=== PATIENT | male | born 1995 | race Caucasian/White ===

== ENCOUNTER → 2016-12-11 | Outpatient (CLI) | payer OTHER | LOC: BMCIMAGING 10:58 | PROVIDERS: ATTEND Family Medicine | DX: R07.81 Pleurodynia (principal) ==

== ENCOUNTER 2016-12-13 11:15 | Emergency (ER) | payer OTHER ==
[2016-12-13 11:25] VITALS: TEMP 98.2
[2016-12-13 11:47] LABS: % IMMATURE GRANULYOCYTES 0.2 % (0.0-1.1); ABSOLUTE IMMATURE GRANULOCYTES 0.01 10^3/uL (0.00-0.10); ADD DIFF? NO; ADD MORPH? NO; ADD SCAN? NO; ATYPICAL LYMPHOCYTE FLAG 30 (0-99); FRAGMENT RBC FLAG 0 (0-99); HEMOGLOBIN 17.1 g/dL (13.7-17.5); LEFT SHIFT FLG 0 (0-99); LIPEMIA HEMOLYSIS FLAG 90 (0-99); MEAN CELL HEMOGLOBIN 28.5 pg (27.9-34.1); MEAN CELL HEMOGLOBIN CONCENTR. 34.2 g/dL (32.4-36.7); MEAN CELL VOLUME 83.2 fL (81.5-99.8); MEAN PLATELET VOLUME 10.2 fL (8.7-11.7); PLATELET CLUMPS FLAG 10 (0-99); PLATELET COUNT 234 10^3/uL (150-400); RED BLOOD CELL COUNT 6.01 10^6/uL (4.40-6.38); RED CELL DISTRIBUTION WIDTH 12.9 % (11.5-15.2)
[2016-12-13 12:03] LABS: ANION GAP 13 mEq/L (8-16); CALCIUM 10.3 mg/dL (8.5-10.4); CARBON DIOXIDE 24 mEq/l (22-31); CHLORIDE 105 mEq/L (97-110); CREATININE 0.8 mg/dL (0.7-1.3); GLOMERULAR FILTRATION RATE > 60; GLUCOSE 84 mg/dL (70-100); POTASSIUM 4.6 mEq/L (3.5-5.2); SODIUM 142 mEq/L (134-144)
--- NOTE | 2016-12-13 12:49 | EDPHY ---
H & P Time Seen by Provider: 12/13/16 11:45 HPI/ROS: CHIEF COMPLAINT: Abdominal pain, rectal bleeding HISTORY OF PRESENT ILLNESS: 21-year-old male presents to the emergency department with rectal bleeding that has been intermittent for nearly 1 month although was more brisk earlier today. He has had some generalized abdominal pain. No vomiting or diarrhea. No chest pain or difficulty breathing. No fevers or chills. The patient does not feel lightheaded. He states he has a known history of hemorrhoids. He has never sought medical treatment for this. REVIEW OF SYSTEMS: Constitutional: No fever, no chills. Eyes: No double or blurry vision. ENT: No sore throat. Respiratory: No cough, no shortness of breath. Cardiac: No chest pain. Gastrointestinal: Abdominal pain as above. No vomiting or diarrhea Genitourinary: No dysuria. Musculoskeletal: No neck or back pain. Skin: No rashes. Neurological: No headache. Past Medical/Surgical History: Attention deficit hyperactivity disorder, depression, anxiety, autism Social History: Single Smoking Status: Never smoked Physical Exam: General Appearance: Alert, no distress. Afebrile. Vital signs are stable. Eyes: Pupils equal and round. Extraocular motions are all intact. ENT: Mouth: Mucous membranes moist. Respiratory: No wheezing, rhonchi, or rales, lungs are clear to auscultation. Cardiovascular: Regular rate and rhythm. Gastrointestinal: Abdomen is soft and nontender, no masses, no rebound or guarding, bowel sounds normal. Rectal exam: Performed with nurseJuanita, at bedside. There is no stool and no blood noted on gloved finger. The patient had 2 small hemorrhoids externally that were not thrombosed nor where the bleeding. Neurological: Alert and oriented x 3, cranial nerves II through XII grossly intact Skin: Warm and dry, no rashes. Musculoskeletal: Nontender to palpate along the cervical, thoracic or lumbar spine. Neck is supple. Extremities: Full range of motion and no peripheral edema. Psychiatric: Patient is oriented X 3, there is no agitation. Constitutional: Initial Vital Signs Temperature (C) 36.8 C 12/13/16 11:23 Heart Rate 62 12/13/16 11:23 Respiratory Rate 16 12/13/16 11:23 Blood Pressure 144/89 H 12/13/16 11:23 O2 Sat (%) 98 12/13/16 11:23 O2 Delivery Mode Room Air Allergies/Adverse Reactions: No Known Allergies Allergy (Verified 12/13/16 11:22) Home Medications: Medication Instructions Recorded NK [No Known Home Meds] 12/13/16 Medical Decision Making ED Course/Re-evaluation: 21-year-old male presents to the emergency department with abdominal pain or rectal bleeding. Patient had normal laboratory studies including normal CBC and chemistries. On rectal examination he did not have any stool or blood on gloved finger. I spoke with Dr. Marisel Campos who was on-call for Gastroenterology, who will see this patient in follow-up. I do not think any imaging studies are indicated. The patient has no pain with palpation to the abdomen. Differential Diagnosis: Including but not limited to hemorrhoids, inflammatory bowel disease, anemia, polyp, colitis, acute appendicitis, obstruction - Data Points Laboratory Results: Laboratory Results 12/13/16 11:35 12/13/16 11:35 Departure - Departure Disposition: Home, Routine, Self-Care Clinical Impression: Rectal bleeding Condition: Good Instructions: Rectal Bleeding (ED) Additional Instructions: Follow up with GI as discussed. Return to the emergency department if you developed recurring a brisk bright red, if you feel lightheaded or dizzy, or if you feel worse in any way. Referrals: Marisel Campos MD [Medical Doctor] - 2-3 days, call for appt. ( Business Continuity Coordinator on-call) Stand Alone Forms: School Excuse
[2016-12-13 12:57] VITALS: BP 136/74; PULSE 68; RESP 18; O2SAT 94
== END 2016-12-13 12:56 | disposition home or self-care (01) ==
DX: K62.5 Hemorrhage of anus and rectum (principal)

== ENCOUNTER 2016-12-31 19:16 | Emergency (ER) | payer OTHER ==
[2016-12-31 19:25] VITALS: BP 134/96; PULSE 96; RESP 16; TEMP 99.3; O2SAT 96
--- NOTE | 2016-12-31 19:51 | EDPHY ---
H & P Stated Complaint: Self inflicted [place] to the right thigh concern they are infected HPI/ROS: CHIEF COMPLAINT: Superficial lacerations HISTORY OF PRESENT ILLNESS: The patient is a 21-year-old male with history of major depressive disorder, who presents to the Emergency Department today for evaluation of self-inflicted wounds The patient cut both of his thighs multiple times yesterday with a camping knife. He has a history of cutting, but has not done so in quite sometime. When asked if he is suicidal, the patient states "I' m afraid to so that stops me." The patient actively sees a therapist. He has contracted that he will see his therapist if he is feeling suicidal. The patient tells me he has had for psychiatric hospitalizations in the past The patient does not take medications for depression because he does not agree with the way it makes him feel. He does not express suicidality or homicidality at this time. The patient notes sore throat and cough. He has been taking Ibuprofen and not finding much relief. He denies fever, nausea, vomiting, or diarrhea. He is not short of breath. REVIEW OF SYSTEMS: A ten point review of systems was performed and is negative with the exception of the items mentioned in the HPI. Past medical history: Major depression, Anxiety Past surgical history: Appendectomy, Orthopedic surgeries, [place] teeth removed. Family history: Noncontributory. Social history: Student at [employer]. General Appearance: Alert. Vital signs reviewed. Blood pressure 134/96. Eyes: Pupils equal and round, no conjunctival injection, no discharge. Anicteric. ENT, Mouth: Mucous membranes are moist, no oropharyngeal erythema or edema. Neck: No lymphadenopathy, supple. Respiratory: Lungs are clear to auscultation; no wheezes, rales, or rhonchi. Cardiovascular: Regular rate and rhythm; no murmur, rub, or gallop. Gastrointestinal: Abdomen is soft and nontender, no masses or organomegaly, bowel sounds normal. Skin: Warm and dry, no rashes on exposed skin, normal color. Back: Nontender to palpation over the thoracolumbar spine. No CVAT. Extremities: Anterior thighs with multiple linear superficial lacerations. I counted at least 50 cuts on the right thigh. Many fewer on the left. Mild erythema to the proximal cuts on the right thigh with mild skin warmth. No drainage or fluctuance. Neurological: Alert and oriented. Moving all four extremities easily and equally. Psychiatric: Normal affect. Source: Patient - Personal History Current Tetanus/Diphtheria Vaccine: Unsure Current Tetanus Diphtheria and Acellular Pertussis (TDAP): Unsure - Medical/Surgical History Hx Asthma: No Hx Chronic Respiratory Disease: No Hx Diabetes: No Hx Cardiac Disease: No Hx Renal Disease: No Hx Cirrhosis: No Hx Alcoholism: No Hx HIV/AIDS: No Hx Splenectomy or Spleen Trauma: No Other PMH: ADHD, depression, anxiety, SI, Bipolar, Autistic, borderline personality disorder. - Social History Smoking Status: Never smoked Constitutional: Initial Vital Signs Temperature (C) 37.4 C 12/31/16 19:22 Heart Rate 96 12/31/16 19:22 Respiratory Rate 16 12/31/16 19:22 Blood Pressure 134/96 H 12/31/16 19:22 O2 Sat (%) 96 12/31/16 19:22 Allergies/Adverse Reactions: No Known Allergies Allergy (Verified 12/31/16 19:22) Home Medications: Medication Instructions Recorded Cephalexin [Keflex] 500 mg PO TID #11 cap 12/31/16 Medical Decision Making ED Course/Re-evaluation: The patient presents with multiple superficial lacerations to both thighs. There are upwards of 50 cuts on the right thigh and less on the left thigh. On examination the cuts on the right thigh have warmth consistent with cellulitis. I would like to start the patient on Keflex to treat this. No evidence of abscess or purulent drainage. The patient denies suicidality at this time. He is followed by a therapist and contracted that he will call his therapist if he has thoughts of harming himself. The patient additionally notes cough and sore throat. I do not think this is related to the cellulitis. This is consistent with an upper respiratory infection, likely viral. I recommend symptomatic treatment. - Data Points Medications Given: Discontinued Medications Cephalexin (Keflex 500 Mg Prepack#4) 1 btl TAKEHOME EDNOW ONE PRN Reason: Protocol Stop: 12/31/16 20:17 Last Admin: 12/31/16 20:29 Dose: 1 btl Departure - Departure Disposition: Home, Routine, Self-Care Clinical Impression: Superficial laceration Cellulitis Qualifiers: Site of cellulitis: extremity Site of cellulitis of extremity: lower extremity Laterality: right Qualified Code(s): L03.115 - Cellulitis of right lower limb Condition: Good Instructions: Laceration (ED), Cellulitis (ED) Additional Instructions: You have been referred to a primary care physician. Please call to arrange a followup appointment if you continue to feel poorly, or have frequent respiratory issues. Take the full course of Keflex as directed. Please return to the emergency department if anything changes with your leg wounds like increased warmth, redness, or drainage. Please keep the wounds clean and dry. Please return to the emergency department and or call your therapist immediately if you begin to feel like you may harm yourself. Referrals: NONE *PRIMARY CARE P,. [Primary Care Provider] - As per Instructions Prescriptions: Cephalexin [Keflex] 500 mg PO TID #11 cap Report Scribed for: Viviana Johnson Report Scribed by: Chantel Chu Date of Report: 12/31/16 Time of Report: 20:21 Physician Review and Approval Statement: 12/31/16 19:51 Portions of this note were transcribed by the medical office specialist. I, Dr. Viviana Johnson, personally performed the history, physical exam, and medical decision- making; and confirmed the accuracy of the information in the transcribed note.
[2016-12-31] MEDS ORDERED: CEPHALEXIN 500MG PREPACK#4 BTL TAKEHOME ONE (20:16)
== END 2016-12-31 20:15 | disposition home or self-care (01) ==
DX: S71.111A Laceration without foreign body, right thigh, initial encounter (principal); S71.112A Laceration without foreign body, left thigh, initial encounter; L03.115 Cellulitis of right lower limb; X78.1XXA Intentional self-harm by knife, initial encounter; Y99.8 Other external cause status